=== PATIENT | male | born 1965 | race American Indian/Alaskan Native ===

== ENCOUNTER 2018-07-05 10:53 | Emergency (ER) | payer SELFPAY ==
[2018-07-05] MEDS ORDERED: MOTRIN PO ONE (12:03)
--- NOTE | 2018-07-05 12:06 | Emergency Department Report ---
HPI - General Chief Complaint: Pain General Time Seen by Provider: 07/05/18 11:58 - HPI HPI: Room 29 The patient is a 52-year-old male presenting with the chief complaint of right rib pain. The patient states yesterday while working he accidentally turned forcefully into a generator striking him in the right chest. Patient states he went home and used witch jonny and rubbing alcohol but the pain did not improve. Patient denies shortness of breath or fever. Patient gives his pain a score of 5-6/10 Location: Right chest Duration: [See above] Quality: [See above] Severity: 5-6/10 Modifying factors: [see above] Context: [see above] Mode of transportation: Walking/public transportation ED Past Medical Hx - Past Medical History Previous Medical History?: No - Surgical History Past Surgical History?: No - Family History Family history: no significant - Social History Smoking Status: Never Smoker Substance Use Type: Alcohol ED Review of Systems ROS: Stated complaint: RT SIDE RIB PAIN Other details as noted in HPI Constitutional: no symptoms reported Eyes: denies: eye pain ENT: denies: throat pain Respiratory: denies: shortness of breath Cardiovascular: denies: dyspnea on exertion Endocrine: no symptoms reported Gastrointestinal: denies: abdominal pain Genitourinary: denies: dysuria Musculoskeletal: myalgia Neurological: denies: headache Physical Exam - Physical Exam Vital Signs: Vital Signs 07/05/18 11:21 Temperature 98.9 F Pulse Rate 99 H Respiratory 18 Rate Blood Pressure 130/98 O2 Sat by Pulse 97 Oximetry Physical Exam: GENERAL: The patient is well-developed well-nourished male lying on stretcher not appearing to be in acute distress. [] HEENT: Normocephalic. Atraumatic. Extraocular motions are intact. Patient has moist mucous membranes. NECK: Supple. Trachea midline CHEST/LUNGS: Clear to auscultation. Breath sounds equal bilaterally. There is no respiratory distress noted. There appears to be crepitus palpable in the right chest HEART/CARDIOVASCULAR: Regular. There is no tachycardia. There is no gallop rub or murmur. ABDOMEN: Abdomen is soft, nontender. Patient has normal bowel sounds. There is no abdominal distention. SKIN: There is no rash. There is no edema. There is no diaphoresis. NEURO: The patient is awake, alert, and oriented. The patient is cooperative. The patient has normal speech MUSCULOSKELETAL: There is no tenderness or deformity. There is no limitation range of motion. ED Course Vital Signs 07/05/18 11:21 Temperature 98.9 F Pulse Rate 99 H Respiratory 18 Rate Blood Pressure 130/98 O2 Sat by Pulse 97 Oximetry - Consultations Consultation #1: 07/05/18 13:[address] Healy- recommends transfer to trauma center Consultation #2: 07/05/18 13:51 [place] transfer line called 07/05/18 14:21 Patient accepted in transfer to [facility]. Accepting physician Dr. Mckeon ED Medical Decision Making - Lab Data Result diagrams: 07/05/18 13:16 07/05/18 13:16 - Radiology Data Radiology results: report reviewed (CT chest), image reviewed (CT chest) Findings [facility] [address] [id number] Cat Scan Report Signed Patient: ADELA GARNER MR#: [id number] : 1964 Acct:[id number] Age/Sex: 52 / M ADM Date: 07/05/18 Loc: ED Attending Dr: Ordering Physician: SUKHWINDER MEJÍA MD Date of Service: 07/05/18 Procedure(s): CT chest wo con Accession Number(s): [id number] cc: SUKHWINDER MEJÍA MD FINAL REPORT EXAM : CT CHEST WO CON HISTORY: right anterior rib pain after blunt force injury TECHNIQUE: CT examination of the chest without IV contrast PRIORS: None. FINDINGS: Extensive gas in the right chest wall extending into the right axilla and lower neck. There is also pneumomediastinum. Acute displaced fractures of the right lateral 6th and 7th ribs. Nondisplaced fracture of the right posterior 8th rib. Nonspecific pulmonary consolidation deep to the right 6th rib fracture is suggestive of pulmonary contusion. Small right pneumothorax collected anteriorly and at the right lung base medially. Estimated volume approximately 10 %. Small fluid level in the medial right lung base pneumothorax region may be a small hemopneumothorax. Linear density may be atelectasis in the left lower lobe posteriorly. No evidence of lung mass or pulmonary nodule. Discontinuity in the mid spinous process of T1 through T4 may reflect fractures. Margins are smooth in these may be chronic and ununited. Normal cardiac size without pericardial effusion. Normal caliber thoracic aorta. Normal-appearing esophagus. No hilar mass or mediastinal adenopathy. IMPRESSION: Extensive gas in the chest wall, right axilla, and right lower neck. There is also pneumomediastinum Acute fractures of the right 6th, 7th, and 8th ribs Small right pneumothorax estimated approximately 10 % volume. There may be additional small hemo pneumothorax in the medial right lung base Right lower lobe pulmonary consolidation deep to the right 6th rib fracture is suggestive of pulmonary contusion Linear atelectasis left lower lobe Mid spinous process abnormality T1 through T4 may reflect chronic or acute fractures Small metal BB left chest wall At the time of the signed report, I discussed the findings over the phone with Dr Mejía. Transcribed By: BAL Dictated By: BERYL TINSLEY MD Electronically Authenticated By: BERYL TINSLEY MD Signed Date/Time: 07/05/181314 DD/ 14 TD/TT: 07/05/181314 - Differential Diagnosis rib fracture, pneumomediastinum, Critical Care Time: Yes Critical care time in (mins) excluding proc time.: 30 Critical care attestation.: If time is entered above; I have spent that time in minutes in the direct care of this critically ill patient, excluding procedure time. ED Disposition Clinical Impression: Ribs, multiple fractures, Pneumothorax, Pneumomediastinum Disposition: DC/TX-70 ANOTHER TYPE HLTHCARE Is pt being admited?: No Does the pt Need Aspirin: No Condition: Fair Referrals: PRIMARY CAREMD [Primary Care Provider] - 3-5 Days Time of Disposition: 14:22 (awaiting transport)
--- NOTE | 2018-07-05 13:16 | Cat Scan Report ---
FINAL REPORT EXAM: CT CHEST WO CON HISTORY: right anterior rib pain after blunt force injury TECHNIQUE: CT examination of the chest without IV contrast PRIORS: None. FINDINGS: Extensive gas in the right chest wall extending into the right axilla and lower neck. There is also pneumomediastinum. Acute displaced fractures of the right lateral 6th and 7th ribs. Nondisplaced fracture of the right posterior 8th rib. Nonspecific pulmonary consolidation deep to the right 6th rib fracture is suggestive of pulmonary contusion. Small right pneumothorax collected anteriorly and at the right lung base medially. Estimated volume approximately 10 %. Small fluid level in the medial right lung base pneumothorax region may be a small hemopneumothorax. Linear density may be atelectasis in the left lower lobe posteriorly. No evidence of lung mass or pulmonary nodule. Discontinuity in the mid spinous process of T1 through T4 may reflect fractures. Margins are smooth in these may be chronic and ununited. Normal cardiac size without pericardial effusion. Normal caliber thoracic aorta. Normal-appearing esophagus. No hilar mass or mediastinal adenopathy. IMPRESSION: Extensive gas in the chest wall, right axilla, and right lower neck. There is also pneumomediastinum Acute fractures of the right 6th, 7th, and 8th ribs Small right pneumothorax estimated approximately 10 % volume. There may be additional small hemo pneumothorax in the medial right lung base Right lower lobe pulmonary consolidation deep to the right 6th rib fracture is suggestive of pulmonary contusion Linear atelectasis left lower lobe Mid spinous process abnormality T1 through T4 may reflect chronic or acute fractures Small metal BB left chest wall At the time of the signed report, I discussed the findings over the phone with Dr Olsen.
[2018-07-05 13:54] LABS: Basophils # (Auto) 0.1 K/mm3 (0.0-0.1); Basophils % (Auto) 0.7 % (0.0-1.8); Eosinophils # (Auto) 0.1 K/mm3 (0.0-0.4); Eosinophils % (Auto) 0.7 % (0.0-4.3); Hematocrit 41.9 % (35.5-45.6); Hemoglobin 14.1 gm/dl (11.8-15.2); Lymphocytes # (Auto) 1.7 K/mm3 (1.2-5.4); Lymphocytes % (Auto) 17.2 % (13.4-35.0); Mean Corpuscular HGB Conc 34 % (32-34); Mean Corpuscular Hemoglobin 30 pg (28-32); Mean Corpuscular Volume 89 fl (84-94); Monocytes # (Auto) 0.6 K/mm3 (0.0-0.8); Monocytes % (Auto) 5.8 % (0.0-7.3); Platelet Count 332 K/mm3 (140-440); Red Blood Count 4.72 M/mm3 (3.65-5.03); Red Cell Distribution Width 16.2 % (13.2-15.2)
[2018-07-05 14:15] LABS: Alanine Aminotransferase 49 units/L (7-56); Albumin 4.1 g/dL (3.9-5); BUN/Creatinine Ratio 12; Blood Urea Nitrogen 7 mg/dL (9-20); Calcium 10.1 mg/dL (8.4-10.2); Hemolysis Index 70
[2018-07-05] MEDS ORDERED: NACL 0.9% 1000 ML 1,000 ML IV ONE (14:21)
[2018-07-05 15:31] VITALS: BP 132/76
== END 2018-07-05 15:41 | disposition other institution (70) ==
LOC: ED 10:53
DX: S22.41XA Multiple fractures of ribs, right side, initial encounter for closed fracture (principal); J93.9 Pneumothorax, unspecified; J98.2 Interstitial emphysema; W22.8XXA Striking against or struck by other objects, initial encounter; Y93.89 Activity, other specified; Y92.89 Other specified places as the place of occurrence of the external cause; Y99.8 Other external cause status
CPT/HCPCS: 36415; 71250; 80053; 85025; 86850; 86900; 86901; 99291; J7030